=== PATIENT | male | born 1940 | race Caucasian/White ===

== ENCOUNTER 2019-04-03 02:09 | Emergency (ER) | payer MEDICARE, OTHER ==
[~2019-04-03] VITALS: Ht 172.7 cm; Wt 84.2 kg
[2019-04-03] MEDS ORDERED: proparacaine 0.5% ophthalmic drops 15ml LEFTEYE ONE (02:30)
[2019-04-03] MEDS ORDERED: HYDROcodone/acetaminophen 10/325mg tab PO ONE (02:30)
[2019-04-03] MEDS ORDERED: moxifloxacin 0.5% ophthalmic drops 3ml LEFTEYE SCH (02:30)
[2019-04-03] MEDS ORDERED: amox tr/potassium clavulanate 875/125mg TAB PO ONE (02:30)
[2019-04-03] MEDS ORDERED: AMOX-422 PO (02:55)
[2019-04-03 03:06] VITALS: BP 163/90
== END 2019-04-03 03:13 | disposition home or self-care (01) ==
LOC: ER 02:10
DX: H00.035 Abscess of left lower eyelid (principal); H00.034 Abscess of left upper eyelid; H10.9 Unspecified conjunctivitis; Z79.2 Long term (current) use of antibiotics; Z98.49 Cataract extraction status, unspecified eye
CPT/HCPCS: 99284

== ENCOUNTER 2019-04-08 22:17 | Emergency (ER) | payer MEDICARE, OTHER ==
[~2019-04-08] VITALS: Ht 172.7 cm; Wt 80.0 kg
[~2019-04-08 22:17] MED LIST: AMOX-422 PO
[2019-04-08] MEDS ORDERED: proparacaine 0.5% ophthalmic drops 15ml EACHEYE ONE (23:15)
--- NOTE | 2019-04-09 00:07 | NUR ---
KADE DUBON TO ASSESS THE PRESSURE TO BOTH EYES . BOTH EYES TEST 13 . LEFT EYE STILL WITH SLIGHT REDNESS AND DISCOMFORT.
[2019-04-09] MEDS ORDERED: ofloxacin 0.33% 5ml ophthalmic drops LEFTEYE STA (00:21)
[2019-04-09] MEDS ORDERED: erythromycin ophthalmic ointment 1gm tube LEFTEYE ONE (00:25)
[2019-04-09] MEDS ORDERED: HYDR-4353 PO (00:32)
[2019-04-09] MEDS ORDERED: HYDROcodone/acetaminophen 10/325mg tab PO ONE (00:35)
[2019-04-09] MEDS ORDERED: ciprofloxacin 0.3% 2.5ml ophthalmic solution LEFTEYE STA (00:40)
[2019-04-09 01:00] VITALS: BP 145/75
[2019-04-09] MEDS ORDERED: CEPH-572 PO (08:39)
[2019-04-09] MEDS ORDERED: PRED10TA23 PO (08:39)
== END 2019-04-09 01:01 | disposition home or self-care (01) ==
LOC: ER 22:18
DX: H10.9 Unspecified conjunctivitis (principal); H57.12 Ocular pain, left eye; Z98.890 Other specified postprocedural states; Z98.42 Cataract extraction status, left eye; Z98.41 Cataract extraction status, right eye
CPT/HCPCS: 99283

== ENCOUNTER 2019-04-09 05:58 | Emergency (ER) | payer MEDICARE, OTHER ==
[~2019-04-09] VITALS: Ht 172.7 cm; Wt 4.5 kg
[~2019-04-09 05:58] MED LIST changes: +HYDR-4353 PO
[2019-04-09] MEDS ORDERED: proparacaine 0.5% ophthalmic drops 15ml LEFTEYE ONE (06:15)
--- NOTE | 2019-04-09 06:23 | NUR ---
SBAR TO PITA RN NO QUESTIONS OR CONCERNS AFTER ASSUMING CARE
[2019-04-09] MEDS ORDERED: morphine 4 MG/ML inj SYRINge IV ONE (06:55)
[2019-04-09] MEDS ORDERED: iohexol 300mg/ml 100ml inj. ONE (07:44)
[2019-04-09] MEDS ORDERED: CEPH-572 PO (08:39)
[2019-04-09] MEDS ORDERED: PRED10TA23 PO (08:39)
[2019-04-09 08:59] VITALS: BP 145/89
== END 2019-04-09 09:06 | disposition home or self-care (01) ==
LOC: ER 05:58
DX: H20.9 Unspecified iridocyclitis (principal); H57.12 Ocular pain, left eye; Z79.899 Other long term (current) drug therapy
CPT/HCPCS: 70481; 96374; 99284; J2270; Q9967

== ENCOUNTER 2020-09-02 10:54 | Observation (INO) | payer MEDICARE, OTHER ==
[2020-08-27 14:13] LABS: BASOPHILS % (AUTO) 0.8 % (0-1); EOSINOPHILS # (AUTO) 0.2 X10'3 (0-0.9); EOSINOPHILS % (AUTO) 2.9 % (0-6); LYMPHOCYTES # (AUTO) 1.2 X10'3 (1.1-4.8); LYMPHOCYTES % (AUTO) 22.3 % (21-51); MEAN CORPUSCULAR HEMOGLOBIN 31.8 PG (27.0-31.0); MEAN CORPUSCULAR HGB CONC 33.6 g/dL (33.0-36.5); MEAN CORPUSCULAR VOLUME 94.7 FL (78-98); MEAN PLATELET VOLUME 7.5 FL (7.4-10.4); MONOCYTES # (AUTO) 0.5 X10'3 (0-0.9); MONOCYTES % (AUTO) 9.9 % (2-12); NEUTROPHILS # (AUTO) 3.5 X10'3 (1.8-7.7); NEUTROPHILS % (AUTO) 64.1 % (42-75); PRE OP HEMATOCRIT 39.9 % (42.0-52.0); PRE OP HEMOGLOBIN 13.4 g/dL (14.0-17.9); PRE OP PLATELET COUNT 269 X10'3 (140-440); RED BLOOD COUNT 4.22 X10'6 (4.70-6.10); RED CELL DISTRIBUTION WIDTH 13.2 % (11.5-14.5)
[2020-08-27 14:26] LABS: ALBUMIN 3.6 G/DL (3.4-5.0); ALKALINE PHOSPHATASE 63 IU/L (46-116); BLOOD UREA NITROGEN 13 MG/DL (7-18); BUN/CREATININE RATIO 12.7 (5.4-32.0); CALCIUM 8.8 MG/DL (8.5-10.1); CHLORIDE 106 MMOL/L (99-107); CREATININE 1.02 MG/DL (0.60-1.10); PRE OP ALT 13 U/L (30-65); PRE OP ANION GAP 8 (8-16); PRE OP AST 17 U/L (10-37); PRE OP BILIRUB, TOTAL 0.4 MG/DL (0.0-1.0); PRE OP GLUCOSE 94 MG/DL (70-104); PRE OP SODIUM 143 MMOL/L (135-145); TOTAL CARBON DIOXIDE 29.1 MMOL/L (24-32); TOTAL PROTEIN 7.1 G/DL (6.4-8.2); eGFR 70 ML/MIN
[~2020-09-02] VITALS: Ht 172.7 cm; Wt 86.0 kg
[2020-09-02] VITALS (20 sets, daily range): BP systolic 137–175; BP diastolic 60–98
[~2020-09-02 10:54] MED LIST changes: -AMOX-422 PO; +ASCO-294 PO; +CYAN3000 SL; +DOCUMENT DATE & TIME OF BETA-BLOCKER PO ONE; +GABA600T13 PO; +GLUC-95 PO; -HYDR-4353 PO; +MULT-620 PO; +TURM500C4 PO; +UBID1CAP54 PO; +[UNRECOGNIZED DRUG - OTHER] PO; +cefazolin/dext.iso 2gm/100ml IV ONE; +famotidine 20mg tablet PO ONE; +ringers solution, lacted 1,000 ML IV SCH
[2020-09-02] MEDS ORDERED: BUPIVAcaine/PF 2.5 mg/ml (0.25%) 30ml vial ONE (13:22)
[2020-09-02] MEDS ORDERED: midazolam 1 mg/ML 2ml injection ONE (14:19)
[2020-09-02] MEDS ORDERED: propofol inj 20 ML IV ONE (14:19)
[2020-09-02] MEDS ORDERED: rocuronium 10mg/ml inj IV ONE (14:19)
[2020-09-02] MEDS ORDERED: fentaNYL/PF 50MCG/1 ML 2ML syringe ONE (14:19)
[2020-09-02] MEDS ORDERED: meperidine/PF 25mg/ml syringe IV PRN ×6 (14:25)
[2020-09-02] MEDS ORDERED: morphine 2 MG/ML inj. syringe IV PRN ×2 (14:25)
[2020-09-02] MEDS ORDERED: ringers solution, lacted 1,000 ML IV SCH ×2 (14:25)
[2020-09-02] MEDS ORDERED: morphine 4 MG/ML inj SYRINge IV PRN ×2 (14:25)
[2020-09-02] MEDS ORDERED: ondansetron/PF 4mg/2ml inj IV PRN ×3 (14:25→19:35)
[2020-09-02] MEDS ORDERED: proCHLORperazine 10 MG/2 ml inj IV PRN ×2 (14:25)
[2020-09-02] MEDS ORDERED: sevoflurane 250ml liquid IH ONE (14:26)
[2020-09-02] MEDS ORDERED: acetaminophen 1,000mg/100ml IV 100 ML IV ONE (15:45)
[2020-09-02] MEDS ORDERED: ondansetron/PF 4mg/2ml inj ONE (16:07)
[2020-09-02] MEDS ORDERED: neostigmine methylsulfate 1 MG/ML 10ml vial ONE (16:07)
[2020-09-02] MEDS ORDERED: glycopyrrolate 0.2mg/ml inj ONE (16:07)
[2020-09-02] MEDS ORDERED: dexamethasone sod phosphate 4mg/ml inj. ONE (16:07)
--- NOTE | 2020-09-02 16:26 | NUR ---
Received from OR via [facility], accompanied by Anesthesiologist DR [email or web address] and report given by Anesthesiologist. PT DROWSY, DENIES PAIN, ABDOMEN W/3 LAP SITES W/DERMABOND CDI. Addendum: 09/02/20 at 1703 by Laura Miller RN Amended: Links added.
[2020-09-02] MEDS ORDERED: HYDROcodone/acetaminophen 10/325mg tab PO ONE (18:10)
[2020-09-02] MEDS ORDERED: HYDROcodone/acetaminophen 10/325mg tab PO PRN (19:35)
--- NOTE | 2020-09-02 20:36 | NUR ---
PT UP TO VOID, VOIDED LARGE AMT, NOTICED UMBILICAL HEMATOMA RIGHT LATERAL AND SUPERIOR SIDES OF UMBILICUS APPROX SIZE OF A LARGE THUMB, CALLED AND UPDATED DR DELACRUZ, ORDERS RECEIVED TO KEEP PT OVERNIGHT FOR OBSERVATION. PTS IN TO SEE PT. HEMATOMA HAS NOT CHANGED IN SIZE OR SHAPE. Report called to receiving nurse. Transferred via [facility]UR[facility], CLOTHING ONLY SENT W/PT TO ROOM 356B, RECEIVING RN AT BEDSIDE TO RECEIVE PT. Special Issues communicated to receiving nurse. YES. Addendum: 09/02/20 at 2041 by Laura Miller RN Amended: Links added.
[2020-09-02] MEDS: multivitamins, therapeutics tablet PO SCH (22:28)
[2020-09-02] MEDS: ascorbic acid 500mg tablet PO SCH (22:28)
[2020-09-02] MEDS: gabapentin 300mg capsule PO SCH (23:43)
[2020-09-03 07:00] VITALS: BP 134/92
[2020-09-03] MEDS ORDERED: [UNRECOGNIZED DRUG - OTHER] PO SCH (08:00)
[2020-09-03] MEDS ORDERED: CHONDROITIN PO SCH (08:00)
[2020-09-03] MEDS ORDERED: non-formulary drug (Ubidecarenone/Vit E Acetate (Co Q-10 100 Mg Softgel) 1 EACH) PO SCH (08:00)
[2020-09-03] MEDS ORDERED: CYANOCOBALAMIN SL SCH (08:00)
[2020-09-03] MEDS ORDERED: GLUCOSAMINE HCL PO SCH (08:00)
[2020-09-03] MEDS: gabapentin 300mg capsule PO SCH (08:31)
[2020-09-03] MEDS: multivitamins, therapeutics tablet PO SCH (08:31)
[2020-09-03] MEDS: ascorbic acid 500mg tablet PO SCH ×2 (08:31→13:27)
[2020-09-03 11:00] VITALS: BP 133/64
--- NOTE | 2020-09-03 15:05 | NUR ---
Pt discharged home with . All belongings taken from room. Pt will f/u with Dr Camarillo in office and was told to call pam for appt for 1 week out. IV taken out, pt alert, oriented and ambulatory. Dr Camarillo came to room and okay with him going home, still small hematoma but nothing increasing or changing. No discharge meds from here or called into pharmacy.
== END 2020-09-03 14:50 | disposition home or self-care (01) ==
LOC: PAS 10:54 → SUR 3N 19:35
PROVIDERS: ADMIT Surgery; ATTEND Surgery
PROC: 8E0W4CZ Robotic Assisted Procedure of Trunk Region, Percutaneous Endoscopic Approach (ICD-10-PCS; 2020-09-02)
PROC: 0YU64JZ Supplement Left Inguinal Region with Synthetic Substitute, Percutaneous Endoscopic Approach (ICD-10-PCS; principal; 2020-09-02 14:26)
DX: K40.90 Unilateral inguinal hernia, without obstruction or gangrene, not specified as recurrent (principal); K40.30 Unilateral inguinal hernia, with obstruction, without gangrene, not specified as recurrent; K43.9 Ventral hernia without obstruction or gangrene
CPT/HCPCS: 36415; 49650; 80053; 82948; 85025; 93005; C1758; C1781; G0378; J0131; J1100; J2175; J2250; J2405; J2704; J2710; J3010; J3490; J7120; A4215; A4618

== ENCOUNTER 2020-09-07 14:36 | Emergency (ER) | payer MEDICARE, OTHER ==
[~2020-09-07] VITALS: Ht 172.7 cm; Wt 84.1 kg
[~2020-09-07 14:36] MED LIST changes: -DOCUMENT DATE & TIME OF BETA-BLOCKER PO ONE; -cefazolin/dext.iso 2gm/100ml IV ONE; -famotidine 20mg tablet PO ONE; -ringers solution, lacted 1,000 ML IV SCH
[2020-09-07 16:04] VITALS: BP 157/72
[2020-09-07] MEDS ORDERED: orphenadrine citrate 60mg/2ml inj. IM ONE (16:45)
[2020-09-07] MEDS ORDERED: ketorolac tromethamine 15mg/ml inj. IM ONE (16:45)
[2020-09-07] MEDS ORDERED: CYCL-1 PO (17:29)
== END 2020-09-07 17:34 | disposition home or self-care (01) ==
LOC: ER 14:37
DX: S43.402A Unspecified sprain of left shoulder joint, initial encounter (principal); Z86.19 Personal history of other infectious and parasitic diseases; Z98.890 Other specified postprocedural states; Z79.899 Other long term (current) drug therapy; Z91.018 Allergy to other foods; X58.XXXA Exposure to other specified factors, initial encounter; Y93.89 Activity, other specified; Y92.89 Other specified places as the place of occurrence of the external cause; Y99.8 Other external cause status
CPT/HCPCS: 73030; 96372; 99284; J1885; J2360

== ENCOUNTER 2022-01-12 09:01 | Outpatient (CLI) | payer MEDICARE, OTHER ==
[~2022-01-12] VITALS: Ht 172.7 cm; Wt 84.0 kg
[2022-01-12] VITALS (8 sets, daily range): BP systolic 130–176; BP diastolic 61–90
[~2022-01-12 09:01] MED LIST changes: -ASCO-294 PO; +CARV-50 PO; +CEPH-585 PO; -CYAN3000 SL; +CYCL-394 PO; -GLUC-95 PO; +NOR5T PO; -TURM500C4 PO; -UBID1CAP54 PO; -[UNRECOGNIZED DRUG - OTHER] PO
[2022-01-12] MEDS ORDERED: nitroGLYCERIN 0.4mg SUBLingual tab SL PRN (09:35)
[2022-01-12] MEDS ORDERED: regadenoson 0.4mg/5ml syringe IV ONE ×2 (09:35→09:55)
[2022-01-12] MEDS ORDERED: aminophylline 500mg/20ml vial IV PRN ×2 (09:35→09:55)
[2022-01-12] MEDS ORDERED: normal saline 500ml IV soln 500 ML IV ONE (09:55)
[2022-01-12] MEDS ORDERED: metoprolol tartrate 1mg/ml inj IV ONE (10:35)
== END 2022-01-12 23:59 | disposition home or self-care (01) ==
LOC: RAD 09:01
PROVIDERS: ATTEND Internal Medicine Cardiovascular Disease
DX: R07.9 Chest pain, unspecified (principal)
CPT/HCPCS: 78452; A9500; J0280; J2785; J3490; J7040

== ENCOUNTER 2022-12-27 05:56 | Day surgery (SDC) | payer MEDICARE, OTHER ==
[2022-12-26 12:04] LABS: BASOPHILS % (AUTO) 0.8 % (0-1); EOSINOPHILS # (AUTO) 0.3 X10'3 (0-0.9); EOSINOPHILS % (AUTO) 4.4 % (0-6); HEMATOCRIT 40.6 % (42.0-52.0); HEMOGLOBIN 13.5 g/dl (14.0-17.9); LYMPHOCYTES # (AUTO) 1.4 X10'3 (1.1-4.8); LYMPHOCYTES % (AUTO) 24.6 % (21-51); MEAN CORPUSCULAR HEMOGLOBIN 31.1 PG (27.0-31.0); MEAN CORPUSCULAR HGB CONC 33.3 g/dL (33.0-36.5); MEAN CORPUSCULAR VOLUME 93.4 FL (78-98); MEAN PLATELET VOLUME 7.8 FL (7.4-10.4); MONOCYTES # (AUTO) 0.5 X10'3 (0-0.9); MONOCYTES % (AUTO) 8.5 % (2-12); NEUTROPHILS # (AUTO) 3.5 X10'3 (1.8-7.7); NEUTROPHILS % (AUTO) 61.7 % (42-75); PLATELET COUNT 207 X10'3 (140-440); RED BLOOD COUNT 4.35 X10'6 (4.70-6.10); RED CELL DISTRIBUTION WIDTH 13.2 % (11.5-14.5); WHITE BLOOD COUNT 5.7 X10'3 (4.5-11.0)
[2022-12-26 12:10] LABS: ALBUMIN 3.2 G/DL (3.4-5.0); ANION GAP 4 (8-16); BLOOD UREA NITROGEN 11 MG/DL (7-18); BUN/CREATININE RATIO 9.9 (10.0-20.0); CALCIUM 9.1 MG/DL (8.5-10.1); CHLORIDE 105 MMOL/L (99-107); CREATININE 1.11 MG/DL (0.60-1.10); GLUCOSE 141 MG/DL (70-104); POTASSIUM 3.8 MMOL/L (3.5-5.1); SODIUM 140 MMOL/L (135-145); TOTAL CARBON DIOXIDE 30.6 MMOL/L (24-32); eGFR 63 ML/MIN
[2022-12-26 12:49] LABS: APTT 27 SECONDS (22-32); PROTHROMBIN TIME 10.7 SECONDS (9.0-12.0)
[~2022-12-27] VITALS: Ht 172.7 cm; Wt 86.2 kg
[2022-12-27] VITALS (12 sets, daily range): BP systolic 106–144; BP diastolic 52–73; PULSE 60–65; RESP 10–17; TEMP 98; O2SAT 96–98
[2022-12-27] MEDS ORDERED: diphenhydrAMINE 25mg capsule PO PRN ×2 (06:10→07:35)
[2022-12-27] MEDS ORDERED: normal saline 1,000 ML IV SCH ×2 (06:10→07:35)
[2022-12-27] MEDS ORDERED: LORazepam 0.5 MG tablet PO PRN ×2 (06:10→07:35)
[2022-12-27] MEDS ORDERED: GLUC-95 PO (06:37)
[2022-12-27] MEDS ORDERED: MECO10005 PO (06:38)
[2022-12-27] MEDS ORDERED: CHOL400T57 PO (06:39)
[2022-12-27] MEDS ORDERED: [UNRECOGNIZED DRUG - CODE] PO (06:40)
[2022-12-27] MEDS ORDERED: FERR-28 PO (06:41)
[2022-12-27] MEDS ORDERED: GABA600T13 PO ×3 (06:43→06:46)
[2022-12-27] MEDS ORDERED: CARV-50 PO (06:45)
[2022-12-27] MEDS ORDERED: CARV12.549 PO (06:45)
[2022-12-27] MEDS ORDERED: ROSU40TA22 PO (07:04)
[2022-12-27] MEDS ORDERED: LIDOcaine 1% (10mg/ml) 2ml vial ONE (07:32)
[2022-12-27] MEDS ORDERED: iohexol 350 MG/ML 50ML vial IV ONE (07:32)
[2022-12-27] MEDS ORDERED: heparin 1,000unit/ml 10ml vial 10 ML ONE (07:32)
[2022-12-27] MEDS ORDERED: midazolam 1 mg/ML 2ml injection ONE (07:32)
[2022-12-27] MEDS ORDERED: fentaNYL/PF 50MCG/1 ML 2ML syringe ONE (07:32)
[2022-12-27] MEDS ORDERED: verapamil 2.5 mg/ml inj IV ONE (07:32)
[2022-12-27] MEDS ORDERED: iohexol 350MG/ML 100ml bottle IV ONE (07:33)
[2022-12-27] MEDS ORDERED: nitroGLYCERIN 500mcg/5mL D5W 5 ML IV ONE (07:43)
[2022-12-27] MEDS ORDERED: normal saline 1000ml 1,000 ML IV SCH (09:00)
== END 2022-12-27 14:06 | disposition home or self-care (01) ==
LOC: SSTAY O 05:56
PROVIDERS: ATTEND Internal Medicine Cardiovascular Disease
DX: R94.39 Abnormal result of other cardiovascular function study (principal); R06.02 Shortness of breath; R53.83 Other fatigue; I10 Essential (primary) hypertension; Z85.820 Personal history of malignant melanoma of skin; Z79.899 Other long term (current) drug therapy; Z90.49 Acquired absence of other specified parts of digestive tract; Z95.0 Presence of cardiac pacemaker; Z98.890 Other specified postprocedural states; Z88.8 Allergy status to other drugs, medicaments and biological substances
CPT/HCPCS: 36415; 76937; 80048; 85025; 85610; 85730; 93005; 93458; 99152; 99153; J1644; J2250; J3010; J3490; J7030; Q0163; Q9967; A6258; A6402; C1725; C1894